=== PATIENT | male | born 1965 | race Caucasian/White ===

== ENCOUNTER 2017-04-05 19:12 | Emergency (ER) | payer OTHER, MEDICAID ==
[~2017-04-05 19:12] MED LIST: IBUP800T23 PO; METH500T3 PO
[2017-04-05 19:15] VITALS: BP 129/80; PULSE 105; RESP 18; TEMP 98.6; O2SAT 96
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
== END 2017-04-05 20:30 | disposition left against medical advice (07) ==
LOC: NED 19:12
DX: M25.551 Pain in right hip (principal); S09.90XA Unspecified injury of head, initial encounter; V19.40XA Pedal cycle driver injured in collision with unspecified motor vehicles in traffic accident, initial encounter; Y93.55 Activity, bike riding
CPT/HCPCS: 99281